=== PATIENT | female | born 1935 | race Caucasian/White ===

== ENCOUNTER 2020-09-11 18:34 | Emergency (ER) | payer MEDICARE ==
[~2020-09-11] VITALS: Ht 152.4 cm; Wt 72.6 kg
--- NOTE | ~2020-09-11 | EMS ---
[address] [address] EMS Patient Care Report Name: FELIPE LOPEZ [id number] Admission: 09/11/20 Attend Phys: Discharge: 09/12/20 Date of : 33 Report #: [id number] THIS REPORT FOR: //name// Report Transmitted: 09/12/2020 04:33 EMS Care Summary [facility] [place] Incident [id number] @ 09/11/2020 17:54 Incident Location [address] [place], [place] [id number] Patient Felipe Lopez Female, 85 Years 1935 Patient Address [address] [place] [address] [address] [place] [id number] Patient History Endocrine Condition - Other,Hypertension (HTN),Direct infection of unspecified joint in infectious and parasitic diseases classified elsewhere,Hypothyroidism, unspecified, Patient Allergies , Patient Medications Aleve, , Acetaminophen, Neurontin, , Fortamet, , Albuterol, Zoloft, Aspirin, Chief Complaint Dizziness Disposition Transported No Lights/[place] Reason Unknown Problem/Person Down Transported To [facility] Narrative Medic 322 was dispatched for a 911 call for an unknown problem. Medic 322 arrived on scene to a female subject sitting in her chair talking with [employer]. The [address] [address] EMS Patient Care Report Name: FELIPE LOPEZ Room: [facility]#: [id number] Admission: 09/11/20 Attend Phys: Discharge: 09/12/20 Date of : 34 Report #: [id number] patient stated that she was dizzy when she stood up. She also had multiple fall thought the day, She was not injuried from the falls. Crista Watts started an assessment on the patient. Medic Stefanie assisted/ walked the patient to the [facility] and secured her using all the straps provided. The patient was transferred to the [facility] without difficulty. Medic Stefanie transported the patient to the ambulance using the litter. Once in the back of the ambulnace Medic Stefanie continued her assessment on the patient. Judith Orellana took a set of vitals on the patient about every ten to fifteen minutes. The medic started an IV on the patient because the hospital requested it. The patient rested comfortably on the litter during the transport. the patient wanted to be transported to [facility]. Medic Stefanie arrived at [facility] and transported the patient to the hospital room using the [facility]. The patient slid herself over to the hospital bed. Medic Stefanie gave a verbal report to the nurse, and transferred patient care to the nurse. HIPAA was signed by the nurse. Judith Orellana EMT-P #[id number] Initial Vitals @18:12P: 66,R: 18,BP: 158/51, @18:22P: 66,R: 18,BP: 152/56, @18:12GCS: 15, @18:22GCS: 15, Assessments @18:01MENTAL:SKIN:HEENT:LUNG SOUNDS:ABDOMEN:PELVIS//GI:EXTREMITIES:PULSE:NEURO: Impression Dizziness Procedures @18:17 cc () Site: Antecubital-LeftResponse: ImprovedSucceeded Timeline 17:49,Call Received 17:49,Dispatch Notified 17:49,Psap Call 17:54,Dispatched 17:54,En Route 17:59,On Scene 18:01,At Patient 18:12,Depart Scene 18:12,BP: 158/51 M,PULSE: 66,RR: 18 R,SPO2: Ox,ETCO2: ,BG: ,PAIN: ,GCS: , 18:12,BP: / M,PULSE: ,RR: R,SPO2: Ox,ETCO2: ,BG: ,PAIN: ,GCS: 15, 18:17, cc Site: Antecubital-Left,Response: ImprovedSucceeded, 18:22,BP: 152/56 M,PULSE: 66,RR: 18 R,SPO2: Ox,ETCO2: ,BG: ,PAIN: ,GCS: , 18:22,BP: / M,PULSE: ,RR: R,SPO2: Ox,ETCO2: ,BG: ,PAIN: ,GCS: 15, 18:29,[place] [address] EMS Patient Care Report Name: FELIPE LOPEZ [facility] [id number] Admission: 09/11/20 Attend Phys: Discharge: 09/12/20 Date of : 33 Report #: [id number] 18:49,Call Closed Disclaimer v1.1 Copyright 2020 [employer] This EMS Care Summary contains data elements from the applicable legal record (which may be displayed differently). It is designed to provide pertinent information for the following purposes: continuity of care, clinical quality, and state data reporting. The complete legal record is available to ED staff and administrators of the receiving hospital in [employer]'s Patient Tracker. All data is provided "as is."
[2020-09-11] MEDS ORDERED: NAPROSYN500 M1 PO (18:36)
[2020-09-11] MEDS ORDERED: NEURONTIN 400M400 M2 PO (18:37)
[2020-09-11] MEDS ORDERED: ATACAND16 MG PO (18:37)
[2020-09-11] MEDS ORDERED: NORCO 10-325 T1 EACH PO (18:37)
[2020-09-11] MEDS ORDERED: ZOLOFT 50 MG TA50 M1 PO (18:38)
[2020-09-11] MEDS ORDERED: METFORMIN HCL500 M3 PO (18:38)
[2020-09-11] MEDS ORDERED: PROAIR HFA8.5 GM INH (18:38)
[2020-09-11] MEDS ORDERED: ASA81BEC PO (18:38)
[2020-09-11] MEDS ORDERED: TOPROL XL50 MG (18:38)
[2020-09-11] MEDS ORDERED: LEVOXYL112 MCG PO (18:38)
[2020-09-11] MEDS ORDERED: PROTONIX40 M4 PO (18:39)
[2020-09-11] MEDS ORDERED: IRON325 PO (18:39)
[2020-09-11] MEDS ORDERED: CALCIUM 500+D1 EAC2 PO (18:39)
[2020-09-11] MEDS ORDERED: SUPER THERAVIT1 EACH PO (18:40)
[2020-09-11] MEDS ORDERED: GLUCOSAMINE HC500 M1 PO (18:40)
[2020-09-11 19:27] LABS: ABSOLUTE BASOPHILS 0.1 thou/uL (0.0-0.2); ABSOLUTE EOSINOPHILS 0.2 thou/uL (0.0-0.7); ABSOLUTE MONOCYTES 0.7 thou/uL (0.0-1.2); ABSOLUTE NEUTROPHILS 3.6 thou/uL (1.6-8.1); BASOPHILS 0.9 %; EOSINOPHILS 3.5 %; HEMATOCRIT 32.6 % (37.0-47.0); HEMOGLOBIN 10.8 gm/dL (12.0-15.0); LYMPHOCYTES 18.1 %; MCH 33.3 pg (26.0-34.0); MCHC 33.1 g/dL (28.0-37.0); MCV 100.5 fL (80.0-100.0); MPV 8.6 fl. (7.2-11.1); NUCLEATED RBCS 0 /100WBC; PLATELET COUNT* 153 thou/uL (150-400); POLYS 65.5 %; RBC 3.24 mil/uL (4.20-5.00); RDW-CV 12.7 % (10.5-14.5); WBC 5.5 thou/uL (4.0-11.0)
[2020-09-11 19:31] LABS: CALCIUM 9.6 mg/dL (8.5-10.1); CREATININE 1.3 mg/dL (0.6-1.3); POTASSIUM 4.9 mmol/L (3.5-5.1)
[2020-09-11 19:36] LABS: ALBUMIN 3.9 g/dL (3.4-5.0); TOTAL BILIRUBIN 0.6 mg/dL (<0.1-1.0); TOTAL PROTEIN 7.4 g/dL (6.4-8.2)
[2020-09-11 21:56] LABS: URINE BILIRUBIN NEGATIVE (Negative); URINE BLOOD NEGATIVE (Negative); URINE CLARITY CLEAR; URINE COLOR YELLOW; URINE GLUCOSE-RANDOM NEGATIVE (Negative); URINE KETONES NEGATIVE (Negative); URINE LEUKOCYTES-REFLEX TRACE (Negative); URINE NITRITE-REFLEX NEGATIVE (Negative); URINE PROTEIN NEGATIVE (Negative); URINE SPECIFIC GRAVITY 1.015 (1.005-1.030); URINE UROBILINOGEN 0.2 E.U./dl (0.2-1.0)
[2020-09-11 22:05] LABS: BACTERIA-REFLEX >30 Many /HPF (None Seen); CASTS None Seen /LPF (None Seen); CRYSTALS None Seen /LPF (None Seen); MUCUS 0-3 Light strn/LPF (None Seen); SQUAMOUS 0-3 Few /LPF (0-3); URINE RBC 3-10 Few /HPF (0-2); WBC CLUMPS Moderate (None Seen)
[2020-09-11] MEDS ORDERED: KEFLEX500 M1 PO (22:57)
[2020-09-12 00:11] LABS: INFLUENZA A ANTIGEN Negative (Negative); INFLUENZA B ANTIGEN Negative (Negative)
[2020-09-12 00:59] VITALS: BP 154/86
--- NOTE | 2020-09-12 09:54 | EKG ---
[place] [address] ELECTROCARDIOGRAM REPORT Name: FELIPE LOPEZ Room: [facility]#: [id number] Admission: 09/11/20 Attend Phys: Discharge: 09/12/20 Date of : 33 Date of Service: 09/11/201948 Report #: [id number] THIS REPORT FOR: //name// [facility] ED Test Date: 2020-09-11 Test Time: 19:49:55 Pat Name: FELIPE LOPEZ Department: Room: Gender: Fruit [employer]: : 1935 Requested By: Therese Tavares Order Number: [id number] MD: Cassius King Measurements Intervals [place] Rate: 68 P: -43 NV: 226 QRS: -22 QRSD: 107 T: 26 QT: 385 QTc: 410 Interpretive Statements Sinus rhythm artifact noted Prolonged NV interval Borderline left axis deviation ST elevation, consider early repolarization No previous ECG available for comparison Electronically Signed On 09-12-2020 9:54:04 LEVEL VIAL GRINDER by Cassius King [email or web address] <ELECTRONICALLY SIGNED> By: Cassius King MD, FACNick 09/12/20 0954 [id number] Cassius King MD, [facility] /EPI
== END 2020-09-12 01:09 | disposition home or self-care (01) ==
LOC: M.ERS 18:34
PROVIDERS: Nurse Practitioner Family
DX: S50.11XA Contusion of right forearm, initial encounter (principal); N39.0 Urinary tract infection, site not specified; R53.1 Weakness; Z20.828 Contact with and (suspected) exposure to other viral communicable diseases; E11.9 Type 2 diabetes mellitus without complications; I10 Essential (primary) hypertension; E03.9 Hypothyroidism, unspecified; K21.9 Gastro-esophageal reflux disease without esophagitis; M19.90 Unspecified osteoarthritis, unspecified site; J44.9 Chronic obstructive pulmonary disease, unspecified; Z88.8 Allergy status to other drugs, medicaments and biological substances; W18.39XA Other fall on same level, initial encounter; Y93.89 Activity, other specified; Y92.89 Other specified places as the place of occurrence of the external cause; Y99.8 Other external cause status

== ENCOUNTER 2020-12-05 13:03 | Inpatient (IN) | payer MEDICARE ==
[~2020-12-05] VITALS: Ht 157.5 cm; Wt 88.2 kg
--- NOTE | ~2020-12-05 | EMS ---
[address] [address] EMS Patient Care Report Name: FELIPE LOPEZ [facility] [id number] Admission: 12/05/20 Attend Phys: Discharge: Date of : 34 Report #: [id number] THIS REPORT FOR: //name// Report Transmitted: 12/05/2020 13:03 EMS Care Summary [facility] Incident [id number] @ 12/05/2020 12:22 Incident Location [id number] [place] [address] Patient FELIPE LOPEZ Female, 85 Years 1935 Patient Address [address] [place] [address] Patient History Hypertension (HTN),Other chronic pain,Direct infection of unspecified joint in infectious and parasitic diseases classified elsewhere,Hyperlipidemia,Hypothyroidism, unspecified,Emphysema,Type 2 diabetes mellitus, Patient Allergies , Patient Medications Fortamet, Naproxen / Pseudoephedrine, Protonix, Zoloft, Ventolin, Aspirin, Neurontin, Chief Complaint Hip/pelvic pain Disposition Transported No Lights/[place]patch Reason Sick Person Transported To [address] [address] EMS Patient Care Report Name: FELIPE LOPEZ Room: [facility] Shrestha#: [id number] Admission: 12/05/20 Attend Phys: Discharge: Date of : 33 Report #: [id number] Upon arrival pt was found with pt's friends. Pt was sitting on a couch, a&ox3, airway open, self maintained, respirations regular, on 3 LPM O2 NC, pulse regular, pink mucosa, dry, warm, skin. Pt is a poor historian. Pt informed crew she's on O2 at all times. Pt denied SOA. Pt stated that she has had several falls from standing due to tripping over the last month. Pt stated she has not been dizzy nor light headed when she falls but "just tripping". Pt is not on blood thinners. Pt has not been seen by a physician after her falls. Pt called 911 since today she has gradually developed severe pain on her lower back and L hip when she tries to walk; Pt attributes the pain to her falls. Pt denied falling in the last 48 hr. Upon arrival rapid assessment was performed. Vitals were obtained. Pt was moved to crew's O2. Pt was assisted to stretcher, was secured, was taken to ambulance, and was transported. Detailed assessment was done en route being normal or not significant except where noted. Pt was calm during transport. Pt care was transferred to ED RN. Pt was moved to ED bed without complications. Initial Vitals @12:35Pain: 03/17, @12:55Pain: 03/17, @12:45Temp: 98.78F, @12:32P: 68,R: 22,BP: 141/50,Revised Trauma: 8, @12:46P: 70,R: 20,BP: 144/80,Revised Trauma: 8, @12:32GCS: 15, @12:46GCS: 15, Assessments @12:28MENTAL:SKIN:HEENT:LUNG SOUNDS:ABDOMEN:PELVIS//GI:EXTREMITIES:PULSE:NEURO: Impression Pelvic and Perineal Pain Procedures @12:34Other - Medication - 3.000 Liters per Minute (l/min [fluid]) - Nasal CannulaResponse: Unchanged Timeline 12:,Call Received 12:,Dispatch Notified 12:,Psap Call 12:,Dispatched 12:,En Route 12:26,On Scene 12:28,At Patient 12:32,BP: 141/50 M,PULSE: 68,RR: 22 R,SPO2: Ox,ETCO2: ,BG: ,PAIN: ,GCS: , 12:32,BP: / M,PULSE: ,RR: R,SPO2: Ox,ETCO2: ,BG: ,PAIN: ,GCS: 15, [place] [address] EMS Patient Care Report Name: FELIPE LOPEZ Room: [facility]#: [id number] Admission: 12/05/20 Attend Phys: Discharge: Date of : 34 Report #: [id number] 12:34,Other - Medication - 3.000 Liters per Minute (l/min [fluid]) - Nasal Cannula,Response: Unchanged 12:35,BP: / M,PULSE: ,RR: R,SPO2: Ox,ETCO2: ,BG: ,PAIN: 5,GCS: , 12:45,Depart Scene 12:45,BP: / M,PULSE: ,RR: R,SPO2: Ox,ETCO2: ,BG: ,PAIN: ,GCS: , 12:46,BP: 144/80 M,PULSE: 70,RR: 20 R,SPO2: Ox,ETCO2: ,BG: ,PAIN: ,GCS: , 12:46,BP: / M,PULSE: ,RR: R,SPO2: Ox,ETCO2: ,BG: ,PAIN: ,GCS: 15, 12:55,BP: / M,PULSE: ,RR: R,SPO2: Ox,ETCO2: ,BG: ,PAIN: 5,GCS: , 13:00,At Destination 13:18,Call Closed Disclaimer v1.1 Copyright 2020 [employer] This EMS Care Summary contains data elements from the applicable legal record (which may be displayed differently). It is designed to provide pertinent information for the following purposes: continuity of care, clinical quality, and state data reporting. The complete legal record is available to ED staff and administrators of the receiving hospital in [employer]'s Patient Tracker. All data is provided "as is."
[~2020-12-05 13:03] MED LIST: ASA81BEC PO; ATACAND16 MG PO; CALCIUM 500+D1 EAC2 PO; GLUCOSAMINE-CH1 EAC8 PO; KEFLEX500 M1 PO; LEVOXYL112 MCG PO; METFORMIN HCL500 M3 PO; NAPROSYN500 M1 PO; NEURONTIN 400M400 M2 PO; NORCO 10-325 T1 EACH PO; PROAIR HFA8.5 GM INH; PROTONIX40 M4 PO; SLOW I PO; SUPER THERAVIT1 EACH PO; TOPROL XL50 MG PO; ZOLOFT 50 MG TA50 M1 PO
[2020-12-05 13:09] VITALS: BP 156/61
[2020-12-05] MEDS ORDERED: AZELASTINE205.5 MCG/ NARES (13:12)
[2020-12-05] MEDS ORDERED: DULCOLAX STOOL100 M1 PO (13:12)
[2020-12-05] MEDS ORDERED: ANORO ELLIPTA1 EACH (13:12)
[2020-12-05] MEDS ORDERED: CLOTRIMAZOLE-BE15 GM TOP (13:12)
[2020-12-05] MEDS ORDERED: FUROSEMIDE 40 M40 MG PO (13:13)
[2020-12-05] MEDS ORDERED: NIZORAL A-D125 ML TOP (13:13)
[2020-12-05] MEDS ORDERED: METFORMIN HCL500 M3 PO (13:14)
[2020-12-05] MEDS ORDERED: SUPER THERAVIT1 EACH PO (13:14)
[2020-12-05] MEDS ORDERED: LORATIDINE 10 M10 M1 PO (13:14)
[2020-12-05] MEDS ORDERED: VITAMIN D325 MC3 PO (13:15)
[2020-12-05] MEDS ORDERED: VENTOLIN HFA 1818 GM INH (13:15)
[2020-12-05 13:22] LABS: ABSOLUTE BASOPHILS 0.1 thou/uL (0.0-0.2); ABSOLUTE EOSINOPHILS 0.1 thou/uL (0.0-0.7); ABSOLUTE LYMPHOCYTES 0.4 thou/uL (0.8-5.3); ABSOLUTE MONOCYTES 0.8 thou/uL (0.0-1.2); ABSOLUTE NEUTROPHILS 5.9 thou/uL (1.6-8.1); BASOPHILS 0.7 %; EOSINOPHILS 1.9 %; HEMATOCRIT 30.3 % (37.0-47.0); LYMPHOCYTES 5.5 %; MCH 33.1 pg (26.0-34.0); MCHC 33.1 g/dL (28.0-37.0); MONOCYTES 10.4 %; NUCLEATED RBCS 0 /100WBC; PLATELET COUNT* 115 thou/uL (150-400); POLYS 81.5 %; RBC 3.03 mil/uL (4.20-5.00); RDW-CV 13.5 % (10.5-14.5); WBC 7.2 thou/uL (4.0-11.0)
[2020-12-05 13:44] LABS: CALCIUM 9.1 mg/dL (8.5-10.1); CREATININE 1.1 mg/dL (0.6-1.3); POTASSIUM 4.6 mmol/L (3.5-5.1)
[2020-12-05 13:54] LABS: ALBUMIN 3.4 g/dL (3.4-5.0); TOTAL PROTEIN 6.4 g/dL (6.4-8.2)
[2020-12-05 15:07] LABS: URINE BILIRUBIN NEGATIVE (Negative); URINE BLOOD NEGATIVE (Negative); URINE CLARITY CLEAR; URINE COLOR YELLOW; URINE GLUCOSE-RANDOM NEGATIVE (Negative); URINE KETONES TRACE (Negative); URINE LEUKOCYTES-REFLEX NEGATIVE (Negative); URINE NITRITE-REFLEX NEGATIVE (Negative); URINE PROTEIN TRACE (Negative); URINE SPECIFIC GRAVITY 1.015 (1.005-1.030)
--- NOTE | 2020-12-05 16:04 | EKG ---
[place] [address] ELECTROCARDIOGRAM REPORT Name: FELIPE LOPEZ Room: [facility]#: [id number] Admission: 12/05/20 Attend Phys: Discharge: Date of : 33 Date of Service: 12/05/20 1308 Report #: [id number] THIS REPORT FOR: //name// [facility] ED Test Date: 2020-12-05 Test Time: 13:08:49 Pat Name: FELIPE LOPEZ Department: Room: Gender: F Clinical Researcher: WILL : 1935 Requested By: Anirudh Delaney Order Number: [id number] MD: Alfred Yeung Measurements Intervals [place] Rate: 62 P: -51 WI: 206 QRS: -33 QRSD: 107 T: 0 QT: 390 QTc: 396 Interpretive Statements Sinus or ectopic atrial rhythm Left axis deviation Borderline T abnormalities, inferior leads Compared to ECG 09/11/2020 19:49:55 Ectopic atrial rhythm now present T-wave abnormality now present Sinus rhythm no longer present First degree AV block no longer present ST (T wave) deviation no longer present Electronically Signed On 12-05-2020 16:03:58 CHECKING CLERK by Alfred Yeung [email or web address] <ELECTRONICALLY SIGNED> By: Alfred Yeung MD, FACC 12/05/20 1603 1308 1308 Alfred Yeung MD, [facility] /EPI
[2020-12-05 18:40] VITALS: BP 144/55
[2020-12-05 19:10] VITALS: BP 133/47
[2020-12-06 04:47] LABS: HEMATOCRIT 26.3 % (37.0-47.0); HEMOGLOBIN 8.7 gm/dL (12.0-15.0); MCH 32.8 pg (26.0-34.0); MCV 99.4 fL (80.0-100.0); MPV 8.7 fl. (7.2-11.1); RBC 2.65 mil/uL (4.20-5.00); RDW-CV 13.1 % (10.5-14.5); WBC 4.9 thou/uL (4.0-11.0)
[2020-12-06 05:10] LABS: CALCIUM 8.6 mg/dL (8.5-10.1); POTASSIUM 4.1 mmol/L (3.5-5.1)
[2020-12-06 08:05] VITALS: BP 137/54
[2020-12-06 16:11] VITALS: BP 146/50
[2020-12-07 07:40] VITALS: BP 128/49
[2020-12-07 16:16] VITALS: BP 138/51
[2020-12-08 08:10] VITALS: BP 135/97
[2020-12-08 16:13] VITALS: BP 131/74
[2020-12-08 16:18] VITALS: BP 122/48
[2020-12-08 20:20] VITALS: BP 120/42
[2020-12-09 08:10] VITALS: BP 143/59
[2020-12-09] MEDS ORDERED: NORCO 10-325 T1 EACH PO (08:50)
[2020-12-09] MEDS ORDERED: LIDOPATCH1 EACH TOP (08:50)
[2020-12-09 15:45] VITALS: BP 115/42
[2020-12-09 19:45] VITALS: BP 118/52
[2020-12-10 07:25] VITALS: BP 131/53
[2020-12-10 08:04] VITALS: BP 131/53
== END 2020-12-10 15:25 | DRG 543 ==
LOC: M.ERS 13:03 → M.TBA-ER 17:10 → M.3W 17:10
PROVIDERS: Physician Assistant; ADMIT Family Medicine; ATTEND Family Medicine
DX: M80.051A Age-related osteoporosis with current pathological fracture, right femur, initial encounter for fracture (principal); S22.089A Unspecified fracture of T11-T12 vertebra, initial encounter for closed fracture; S32.019A Unspecified fracture of first lumbar vertebra, initial encounter for closed fracture; J96.11 Chronic respiratory failure with hypoxia; E03.9 Hypothyroidism, unspecified; I10 Essential (primary) hypertension; E11.9 Type 2 diabetes mellitus without complications; E66.01 Morbid (severe) obesity due to excess calories; M19.90 Unspecified osteoarthritis, unspecified site; J44.9 Chronic obstructive pulmonary disease, unspecified; M54.31 Sciatica, right side; K21.9 Gastro-esophageal reflux disease without esophagitis; W18.39XA Other fall on same level, initial encounter; Z20.822 Contact with and (suspected) exposure to COVID-19; Z79.84 Long term (current) use of oral hypoglycemic drugs; Z79.899 Other long term (current) drug therapy; Z68.35 Body mass index [BMI] 35.0-35.9, adult; Z88.8 Allergy status to other drugs, medicaments and biological substances; Y93.89 Activity, other specified; Y92.89 Other specified places as the place of occurrence of the external cause; Y99.8 Other external cause status